=== PATIENT | female | born 1965 | race Caucasian/White ===

== ENCOUNTER 2016-05-18 19:56 | Emergency (ER) | payer MEDICAID ==
[2016-05-18] MEDS ORDERED: Sodium Chloride 0.9% 1,000 ML IV SCH ×3 (20:15→21:30)
--- NOTE | 2016-05-18 20:20 | EDM.PDOC ---
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 Onset: sudden Onset Date: 05/18/16 Onset Time: 19:30 Duration: Hour(s):, Getting worse, Heavy Location: Reports: pelvis Severity: moderate Context: Reports: Other (S/P Lap Hyst) - Related Data Allergies Allergy/AdvReac Type Severity Reaction Status Date / Time prednisone Allergy Syncope Verified 05/18/16 20:25 Home Meds: Home Meds Gabapentin [Neurontin] 300 mg PO BID 07/25/13 [History] Lisinopril 10 mg PO DAILY 07/25/13 [History] Metoprolol Tartrate 100 mg PO BID 07/25/13 [History] Nortriptyline HCl [Pamelor] 10 mg PO 07/25/13 [History] Topiramate [Topamax] 25 mg PO BID 07/25/13 [History] Venlafaxine [Effexor XR 24 Hr] 37.5 mg PO DAILY 07/25/13 [History] amLODIPine [Norvasc] 10 mg PO 07/25/13 [History] atorvaSTATin [Lipitor] 20 mg PO BEDTIME 07/25/13 [History] metroNIDAZOLE [Flagyl] 500 mg PO Q8H #30 tab 07/26/13 [Rx] Social & Family History - Alcohol Use Days Per Week of Alcohol Use: 0 - Recreational Drug Use Recreational Drug Use: No ED ROS GENERAL - Review of Systems Review Of Systems: See Below Constitutional: Reports: no symptoms HEENT: Reports: No symptoms Respiratory: Reports: no symptoms Cardiovascular: Reports: No symptoms Endocrine: Reports: no symptoms GI/Abdominal: Reports: No symptoms : Reports: other (vaginal bleeding) Musculoskeletal: Reports: no symptoms Skin: Reports: no symptoms Neurological: Reports: no symptoms Psychiatric: Reports: No symptoms Hematologic/Lymphatic: Reports: no symptoms Immunologic: Reports: no symptoms ED EXAM, GENERAL - Physical Exam Exam: See Below Exam Limited By: No limitations General Appearance: no apparent distress, anxious Eye Exam: bilateral eye: PERRL Ears: normal external exam Ear Exam: bilateral ear: TM bulging Nose: normal inspection Throat/Mouth: Normal inspection Head: atraumatic Neck: normal inspection Respiratory/Chest: no respiratory distress Cardiovascular: normal peripheral pulses, tachycardia GI/Abdominal: normal bowel sounds, soft (Female) Exam: Vaginal bleeding, Other (Sutures at Vaginal Cuff) Extremities: normal inspection Neurological: alert, oriented, CN II-XII intact Psychiatric: anxious Skin Exam: Warm, Intact Lymphatic: no adenopathy ED GENERAL MEDICAL PROCEDURES - Additional/Other Procedure(s) Other (Free Text) Procedure(s): Vaginal Packing placed by oncall Dr. Mccray. Discussed with Dr. Erazo @ [facility] in [place] and patient to transfer to ED Course - Vital Signs Last Recorded V/S: Last Vital Signs Temp 36.6 C 05/18/16 20:02 Pulse 106 H 05/18/16 20:02 Resp 20 05/18/16 20:02 BP 166/73 H 05/18/16 20:02 Pulse Ox 100 05/18/16 20:02 Departure - Departure Time of Disposition: 20:31 Disposition: DC/Tfer to Other 70 Condition: fair Clinical Impression: Vaginal bleeding, abnormal Forms: ED Department Discharge, Interfacility Transfer EMTYOLI
[2016-05-18] MEDS ORDERED: fentaNYL 100 MCG/2 ML SDV IVPUSH ONE (20:33)
[2016-05-18] MEDS ORDERED: Ondansetron 4 MG/2 ML SDV IV ONE (20:36)
[2016-05-18] MEDS ORDERED: Ondansetron 4 MG/2 ML SDV ONE (20:37)
[2016-05-18 20:39] LABS: CHLORIDE,CL 106 mmol/L (101-111); SODIUM,NA 138 mmol/L (135-145)
[2016-05-18] MEDS ORDERED: Sodium Chloride 0.9% 1,000 ML IV ONE (21:09)
--- NOTE | 2016-05-18 21:16 | PCM.SN ---
- Free Text/Narrative Note: 05/18/16 I was contacted by Dr. Edwards, the ED attending, regarding this patient who presented with brisk vaginal bleeding that started approximately 30 minutes prior to her arrival to the ED. She was laying and holding her granddaughter when the bleeding occurred. She had a laparoscopic hysterectomy on 05/01/16. She denied any intercourse or placing anything in the vagina. No heavy lifting. Upon my arrival, patient was alert and orientated. Per nursing, she had lost about 1000 mL of blood upon arrival. Her hemoglobin was 11+. Patient complained of nausea and was given 4 mg IV Zofran. She was just about to receive 50 mcg of Fentanyl for pain when she had an episode of tachycardia and hypotension. She also would not respond to questions. This lasted about 45 seconds and resolved spontaneously. The Fentanyl was held. Patient was given IV fluid bolus and cardiac monitoring was initiated. 1 unit of blood was type and crossed. 1 1/2 vaginal packs were placed and bleeding initially slowed but then continued. I spoke to Dr. Erazo, the DESK CLERK milk condenser at [facility], about any further recommendations. He stated we were doing appropriate care; however, suggested that a sedated vaginal exam may be necessary if patient becomes unstable. Patient was examined again and bleeding has slowed somewhat. Her vital signs are stable. She is currently receiving IV fluids as well as a unit of unmatched blood. A second unit of blood will be hung shortly. As patient is stable and there is no further intervention at this time, I will leave patient in the care of Dr. Edwards. If patient does become unstable, I am more than happy to reevaluated her. Ultimately, she likely needs surgical intervention. Iesha Rhodes MD
== END 2016-05-18 22:13 | disposition other institution (70) ==
LOC: DL.ED 19:56
DX: N93.9 Abnormal uterine and vaginal bleeding, unspecified (principal); Z88.8 Allergy status to other drugs, medicaments and biological substances; Z79.899 Other long term (current) drug therapy
CPT/HCPCS: 36415; 36430; 80053; 85025; 85730; 86850; 86900; 86901; 86920; 86922; 96361; 96374; 99285; J2405; J7030; P9016

== ENCOUNTER 2019-01-05 20:01 | Emergency (ER) | payer MEDICAID ==
[2019-01-05 20:19] VITALS: BP 137/56; PULSE 87
--- NOTE | 2019-01-05 21:09 | EDM.PDOC ---
ED HPI GENERAL MEDICAL PROBLEM - General Chief Complaint: Headache Stated Complaint: SPEACH, HEAD ACHE, NOT PROCESSING THOUGHTS Time Seen by Provider: 01/05/19 20:10 Source of Information: Reports: Patient History Limitations: Reports: No Limitations - History of Present Illness INITIAL COMMENTS - FREE TEXT/NARRATIVE: ED ambulatory with complaint of difficulty talking first noted 2 days ago with some weakness on right upper, family noticed sppech around 1100 today, Has felt off for a couple days .Has frontal band headache rating 9/10. Admits under stress also. 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 Patient called ED while driving from [place] to [place] . Completed her drive, Did not call 911 for assistance as "not going to leave my car on side of road" Denies any recent illness, no fever no chills, no cough, No urinary frequency or burning. GCS 15 Frontal Headache Pain Score (Numeric/FACES): 9 - Related Data Allergies Allergy/AdvReac Type Severity Reaction Status Date / Time prednisone Allergy Syncope Verified 01/05/19 20:06 Home Meds: Home Meds Gabapentin [Neurontin] 300 mg PO BID 07/25/13 [History] Lisinopril 10 mg PO DAILY 07/25/13 [History] Metoprolol Tartrate 100 mg PO BID 07/25/13 [History] Nortriptyline HCl [Pamelor] 10 mg PO 07/25/13 [History] Topiramate [Topamax] 25 mg PO BID 07/25/13 [History] Venlafaxine [Effexor XR 24 Hr] 37.5 mg PO DAILY 07/25/13 [History] amLODIPine [Norvasc] 10 mg PO 07/25/13 [History] atorvaSTATin [Lipitor] 20 mg PO BEDTIME 07/25/13 [History] metroNIDAZOLE [Flagyl] 500 mg PO Q8H #30 tab 07/26/13 [Rx] Past Medical History HEENT History: Reports: Impaired Vision Cardiovascular History: Reports: Hypertension, [place] Respiratory History: Reports: None Neurological History: Reports: CVA Psychiatric History: Reports: None Hematologic History: Reports: None Immunologic History: Reports: None Oncologic (Cancer) History: Reports: None - Past Surgical History Cardiovascular Surgical History: Reports: Coronary Artery Stent Female Surgical History: Reports: Hysterectomy Social & Family History - Tobacco Use Smoking Status *Q: Never Smoker - Recreational Drug Use Recreational Drug Use: No ED ROS GENERAL - Review of Systems Review Of Systems: ROS reveals no pertinent complaints other than HPI. ED EXAM, NEURO - Physical Exam Exam: See Below Exam Limited By: No Limitations General Appearance: Alert, Anxious, Thin Eye Exam: Bilateral Eye: EOMI, Normal Fundi, PERRL (4mm) Ears: Normal External Exam, Hearing Grossly Normal, Normal TMs Nose: Normal Inspection Throat/Mouth: Normal Lips, Normal Oropharynx, Normal Voice. No: Normal Teeth ( poor dentation) Head Exam: Atraumatic, Normocephalic Respiratory/Chest: No Respiratory Distress, Lungs Clear, Normal Breath Sounds Cardiovascular: Normal Peripheral Pulses, Regular Rate, Rhythm, No Edema GI/Abdominal: Normal Bowel Sounds, Soft Neurological: Alert, Normal Dorsiflexion, No Motor/Sensory Deficits, Oriented x 3, Other (slight weakness right upper hand grasp, no drifting. Abnrmal finger to nose 1 of 3 attempts. Speech clear, at times when anxious has difficulty getting words out intially, ). No: Tremor Back Exam: Normal Inspection Extremities: Normal Inspection Psychiatric: Anxious Skin Exam: Warm, Dry, Intact, Pallor Course - Vital Signs Last Recorded V/S: Last Vital Signs Temp 97.2 F 01/05/19 20:10 Pulse 87 01/05/19 20:10 Resp 16 01/05/19 20:10 BP 137/56 L 01/05/19 20:10 Pulse Ox 100 01/05/19 20:10 - Orders/Labs/Meds Labs: Laboratory Tests 01/05/19 01/05/19 01/05/19 Range/Units 20:17 20:17 20:17 WBC 8.1 (5.0-10.0) 10^3/uL RBC 3.98 L (4.2-5.4) 10^6/uL Hgb 12.5 D (12.0-16.0) g/dL Hct 38.5 (37.0-47.0) % MCV 96.7 (80-100) fL MCH 31.4 (27.0-34.0) pg MCHC 32.5 L (33.0-35.0) g/dL Plt Count 207 (150-450) 10^3/uL Neut % (Auto) 64.4 (42.2-75.2) % Lymph % (Auto) 20.5 (20.5-50.1) % [place] % (Auto) 12.3 H (2-8) % Eos % (Auto) 2.6 (1.0-3.0) % Baso % (Auto) 0.2 (0.0-1.0) % PT 8.9 L (9.0-12.0) SEC INR 0.9 (0.9-1.2) Sodium 137 (135-145) mmol/L Potassium 4.1 (3.6-5.0) mmol/L Chloride 103 (101-111) mmol/L Carbon Dioxide 24.0 (21.0-31.0) mmol/L Anion Gap 14.1 BUN 15 (7-18) mg/dL Creatinine 1.0 (0.6-1.3) mg/dL Est Cr Clr Drug Dosing 54.89 mL/min Estimated GFR (MDRD) 58 BUN/Creatinine Ratio 15.00 Glucose 99 (74-105) mg/dL Calcium 8.8 (8.4-10.2) mg/dl Total Bilirubin 0.5 (0.2-1.0) mg/dL AST 18 (10-42) IU/L ALT 12 (10-60) IU/L Alkaline Phosphatase 63 (42-121) IU/L Total Protein 7.3 (6.7-8.2) g/dl Albumin 4.1 (3.2-5.5) g/dl Globulin 3.2 Albumin/Globulin Ratio 1.28 Urine Color (YELLOW) Urine Appearance (CLEAR) Urine pH (5.0-9.0) Ur Specific [place] (1.005-1.030) Urine Protein (NEGATIVE) Urine Glucose (UA) (NEGATIVE) Urine Ketones (NEGATIVE) Urine Occult Blood (NEGATIVE) Urine Nitrite (NEGATIVE) Urine Bilirubin (NEGATIVE) Urine Urobilinogen (0.2-1.0) mg/dL Ur Leukocyte Esterase (NEGATIVE) Urine RBC /HPF Urine WBC (0-5/HPF) /HPF Ur Epithelial Cells (NOT SEEN) /HPF Amorphous Sediment (NOT SEEN) /HPF Urine Bacteria (0-FEW/HPF) /HPF Urine Mucus (NOT SEEN) /LPF Urine Opiates Screen (NEGATIVE) Ur Oxycodone Screen (NEGATIVE) Urine Methadone Screen (NEGATIVE) Ur Barbiturates Screen (NEGATIVE) U Tricyclic Antidepress (NEGATIVE) Ur Phencyclidine Scrn (NEGATIVE) Ur Amphetamine Screen (NEGATIVE) U Methamphetamines Scrn (NEGATIVE) Urine MDMA Screen (NEGATIVE) U Benzodiazepines Scrn (NEGATIVE) Urine Cocaine Screen (NEGATIVE) U Marijuana (THC) Screen (NEGATIVE) 01/05/19 01/05/19 Range/Units 20:40 20:40 WBC (5.0-10.0) 10^3/uL RBC (4.2-5.4) 10^6/uL Hgb (12.0-16.0) g/dL Hct (37.0-47.0) % MCV (80-100) fL MCH (27.0-34.0) pg MCHC (33.0-35.0) g/dL Plt Count (150-450) 10^3/uL Neut % (Auto) (42.2-75.2) % Lymph % (Auto) (20.5-50.1) % [place] % (Auto) (2-8) % Eos % (Auto) (1.0-3.0) % Baso % (Auto) (0.0-1.0) % PT (9.0-12.0) SEC INR (0.9-1.2) Sodium (135-145) mmol/L Potassium (3.6-5.0) mmol/L Chloride (101-111) mmol/L Carbon Dioxide (21.0-31.0) mmol/L Anion Gap BUN (7-18) mg/dL Creatinine (0.6-1.3) mg/dL Est Cr Clr Drug Dosing mL/min Estimated GFR (MDRD) BUN/Creatinine Ratio Glucose (74-105) mg/dL Calcium (8.4-10.2) mg/dl Total Bilirubin (0.2-1.0) mg/dL AST (10-42) IU/L ALT (10-60) IU/L Alkaline Phosphatase (42-121) IU/L Total Protein (6.7-8.2) g/dl Albumin (3.2-5.5) g/dl Globulin Albumin/Globulin Ratio Urine Color Yellow (YELLOW) Urine Appearance Slightly cloudy (CLEAR) Urine pH 7.0 (5.0-9.0) Ur Specific [place] 1.020 (1.005-1.030) Urine Protein Negative (NEGATIVE) Urine Glucose (UA) Negative (NEGATIVE) Urine Ketones Negative (NEGATIVE) Urine Occult Blood Negative (NEGATIVE) Urine Nitrite Negative (NEGATIVE) Urine Bilirubin Negative (NEGATIVE) Urine Urobilinogen 2.0 H (0.2-1.0) mg/dL Ur Leukocyte Esterase Trace H (NEGATIVE) Urine RBC 0-5 /HPF Urine WBC 20-30 H (0-5/HPF) /HPF Ur Epithelial Cells Moderate H (NOT SEEN) /HPF Amorphous Sediment Few (NOT SEEN) /HPF Urine Bacteria Moderate H (0-FEW/HPF) /HPF Urine Mucus Few H (NOT SEEN) /LPF Urine Opiates Screen Negative (NEGATIVE) Ur Oxycodone Screen Negative (NEGATIVE) Urine Methadone Screen Negative (NEGATIVE) Ur Barbiturates Screen Negative (NEGATIVE) U Tricyclic Antidepress Negative (NEGATIVE) Ur Phencyclidine Scrn Negative (NEGATIVE) Ur Amphetamine Screen Negative (NEGATIVE) U Methamphetamines Scrn Negative (NEGATIVE) Urine MDMA Screen Negative (NEGATIVE) U Benzodiazepines Scrn Negative (NEGATIVE) Urine Cocaine Screen Negative (NEGATIVE) U Marijuana (THC) Screen Negative (NEGATIVE) - Radiology Interpretation Free Text/Narrative:: [facility] Final Radiology Report Call: [phone] assistance Online chat: [email or web address] Name: MICHEAL BOND Age: 53Years F Date: 01/05/2019 SSN: -- : [id number] Study: CT HEAD WO Requesting Physician: ARTEMIO RODGERS Images: [id number] Addl Studies: Provided Clinical History: Contrast: Without Contrast Medium: Contrast Amount: Contrast Method: Page 1 of 2 PROCEDURE INFORMATION: Exam: CT Head Without Contrast Exam date and time: 01/05/2019 8:27 PM Clinical history: 53 years old, female; Other: Trouble speaking, previous cta TECHNIQUE: Imaging protocol: Computed tomography of the head without contrast. Radiation optimization: All CT scans at this facility use at least one of these dose optimization techniques: automated exposure control; mA and/or kV adjustment per patient size (includes targeted exams where dose is matched to clinical indication); or iterative reconstruction. Other technique: STROKE PROTOCOL was implemented. COMPARISON: CT HEAD 10/17/2012 11:33 PM FINDINGS: Brain: Multiple old bilateral lacunar infarcts are demonstrated similar to the prior study. There is moderate diffuse cerebral atrophy present, more pronounced than expected for this patient's age. The appearance is similar to the prior study. There is no evidence of acute hemorrhage within the brain parenchyma or the subarachnoid space. There is no evidence of an acute ischemic event. Patchy deep white matter low-attenuation zones are seen compatible with this age group suggesting chronic subcortical ischemia. Ventricles: The ventricular system demonstrates moderate diffuse compensatory enlargement. Bones/joints: The skull is normal. Sinuses: There is a moderate sized retention cyst or polyp in the right maxillary sinus. Mastoid air cells: The mastoid sinuses are normal. Orbits: The visualized portions of the orbits are normal. Soft tissues: The extracranial soft tissues are normal. IMPRESSION: 1. Multiple old lacunar infarcts on the right than the left. MICHEAL BOND | Final Radiology Report CONFIDENTIALITY STATEMENT This report is intended only for use by the referring physician, and only in accordance with law. If you received this in error, call [phone]. Page 2 of 2 2. No acute infarcts identified. 3. No significant change is identified since the prior exam. ASSESSMENT: ASPECTS ([place] Stroke Program Early CT Score) is 10. Thank you for allowing us to participate in the care of your patient. Dictated and Authenticated by: Prosper Hutchison MD 01/05/2019 8:36 PM Central Time ([place] - Re-Assessments/Exams Free Text/Narrative Re-Assessment/Exam: 5500 TC with Alt neurology. Admit to hospitalist. Dr Tom accepting. Tx via [facility]. GCS 15 at time of tx Departure - Departure Time of Disposition: 21:15 Disposition: DC/Tfer to Acute Hospital 02 Condition: Fair, Undetermined Clinical Impression: Alteration in speech, Anxiety, Weakness of right arm Headache Qualifiers: Headache type: unspecified Headache chronicity pattern: unspecified pattern Intractability: not intractable Qualified Code(s): R51 - Headache - Discharge Information Referrals: PCP,Unobtain [Primary Care Provider] - Forms: ED Department Discharge
[2019-01-05 21:15] LABS: ANION GAP 14.1
== END 2019-01-05 21:18 ==
LOC: DL.ED 20:01
DX: R47.81 Slurred speech (principal); F41.9 Anxiety disorder, unspecified; M62.81 Muscle weakness (generalized); R51 Headache; I10 Essential (primary) hypertension; I25.2 Old myocardial infarction; Z79.899 Other long term (current) drug therapy; Z86.73 Personal history of transient ischemic attack (TIA), and cerebral infarction without residual deficits; Z88.8 Allergy status to other drugs, medicaments and biological substances
CPT/HCPCS: 36415; 70450; 80053; 80305-QW; 81001; 85025; 85610; 87086; 99285-25

== ENCOUNTER 2020-04-25 19:09 | Emergency (ER) | payer MEDICAID ==
[2020-04-25] MEDS ORDERED: Pantoprazole 40 MG Vial IVPUSH ONE (19:14)
[2020-04-25] MEDS ORDERED: Sodium Chloride 0.9% 1,000 ML IV ONE (19:14)
[2020-04-25] MEDS ORDERED: Octreotide 100 MCG in Sodium Chloride 0.9% 99 ML IV SCH (19:15)
[2020-04-25] MEDS ORDERED: Ondansetron 4 MG/2 ML SDV IVPUSH ONE ×2 (19:33→20:36)
[2020-04-25] MEDS ORDERED: Ondansetron 4 MG/2 ML SDV ONE (19:33)
[2020-04-25 19:44] VITALS: BP 172/68; PULSE 99
--- NOTE | 2020-04-25 19:45 | EDM.PDOC ---
ED HPI GENERAL MEDICAL PROBLEM - General Stated Complaint: AMBULANCE Time Seen by Provider: 04/25/20 19:20 Source of Information: Reports: Patient, EMS, RN, RN Notes Reviewed History Limitations: Reports: No Limitations - History of Present Illness INITIAL COMMENTS - FREE TEXT/NARRATIVE: Patient presents to the ED via EMS with complaints of hematemesis. The patient reports she has felt nauseas for most of the afternoon for which she took GasX. She states she was driving home to [place] roughly one hour ago and starting vomiting coffee-ground emesis in her car; she called [address] for EMS support. She denies a history of GI bleed; she notes she was recently start on Famotidine 20mg daily for a diagnosis of Gastritis. She denies recent illness, fever, shaking chills, chest pain, shortness of breath, palpitations, diarrhea, melena, or hematochezia. She attests to drinking "socially"; her last drink was two liquor drinks last night, 04/25/20. She denies tobacco or recr eational drug use. - Related Data Allergies Allergy/AdvReac Type Severity Reaction Status Date / Time prednisone Allergy Syncope Verified 04/25/20 19:44 Home Meds: Home Meds Gabapentin [Neurontin] 300 mg PO BID 07/25/13 [History] Lisinopril 10 mg PO DAILY 07/25/13 [History] Metoprolol Tartrate 100 mg PO BID 07/25/13 [History] Nortriptyline HCl [Pamelor] 10 mg PO 07/25/13 [History] Topiramate [Topamax] 25 mg PO BID 07/25/13 [History] Venlafaxine [Effexor XR 24 Hr] 37.5 mg PO DAILY 07/25/13 [History] amLODIPine [Norvasc] 10 mg PO 07/25/13 [History] atorvaSTATin [Lipitor] 20 mg PO BEDTIME 07/25/13 [History] metroNIDAZOLE [Flagyl] 500 mg PO Q8H #30 tab 07/26/13 [Rx] Past Medical History HEENT History: Reports: Impaired Vision Cardiovascular History: Reports: Hypertension, [place] Respiratory History: Reports: None Neurological History: Reports: CVA Psychiatric History: Reports: None Hematologic History: Reports: None Immunologic History: Reports: None Oncologic (Cancer) History: Reports: None - Past Surgical History Cardiovascular Surgical History: Reports: Coronary Artery Stent Female Surgical History: Reports: Hysterectomy ED ROS GENERAL - Review of Systems Review Of Systems: Comprehensive ROS is negative, except as noted in HPI. ED EXAM, GI/ABD - Physical Exam Exam: See Below Exam Limited By: No Limitations General Appearance: Alert, Mild Distress (Emesis; Diaphoresis) Eyes: Bilateral: Normal Appearance, EOMI Throat/Mouth: Normal Inspection, Normal Voice, No Airway Compromise, Other (Dried brown emesis to lips) Head: Atraumatic, Normocephalic Neck: Normal Inspection, Supple, Non-Tender, Full Range of Motion Respiratory/Chest: No Respiratory Distress, Lungs Clear, Normal Breath Sounds, No Accessory Muscle Use, Chest Non-Tender Cardiovascular: Normal Peripheral Pulses, Regular Rate, Rhythm, No Edema, No Gallop, No JVD, No Murmur, No Rub GI/Abdominal Exam: Normal Bowel Sounds, Soft, Non-Tender, No Distention, No Mass, Pelvis Stable Neurological: Alert, Oriented, CN II-XII Intact, Normal Cognition, No Motor/Sensory Deficits Psychiatric: Anxious Skin Exam: Warm, Diaphoretic, Pallor. No: Ecchymosis, Erythema, Jaundice, Mottled #1 Interpretation EKG Date: 04/25/20 Time: 19:27 Rhythm: NSR Rate (Beats/Min): 87 [place]: Normal P-Wave: Present QRS: Normal ST-T: Normal QT: Normal Comparison: NA - No Prior EKG EKG Interpretation Comments: NSR; PVCs; No evidence of acute ischemia Course - Vital Signs Last Recorded V/S: Last Vital Signs Temp 97.1 F 04/25/20 19:13 Pulse 99 04/25/20 19:13 Resp 17 04/25/20 19:13 BP 172/68 H 04/25/20 19:13 Pulse Ox 96 04/25/20 19:13 - Orders/Labs/Meds Orders: Active Orders 24 hr Category Date Time Status C-REACTIVE PROTEIN [CHEM] Stat Lab 04/25/20 19:19 Received COMPREHENSIVE METABOLIC PN,CMP [CHEM] Stat Lab 04/25/20 19:19 Received ETHANOL BLOOD MEDICAL [CHEM] Stat Lab 04/25/20 19:19 Received MAGNESIUM [CHEM] Stat Lab 04/25/20 19:19 Received Octreotide [SandoSTATIN] 100 mcg Med 04/25/20 19:15 Active Sodium Chloride 0.9% [Normal Saline] 99 ml IV Q10H Blood Transfusion Reflex Orders [OM.PC] Routine Oth 04/25/20 19:10 Ordered Medication Orders Octreotide Acetate 100 mcg/ (Sodium Chloride) 100 mls @ 50 mls/hr IV Q10H RENETTA Last Admin: 04/25/20 19:26 Dose: 50 mls/hr Documented by: JEROME Labs: Laboratory Tests 04/25/20 04/25/20 04/25/20 Range/Units 19:19 19:19 19:19 WBC 13.2 H (5.0-10.0) 10^3/uL RBC 3.82 L (4.2-5.4) 10^6/uL Hgb 12.4 (12.0-16.0) g/dL Hct 38.4 (37.0-47.0) % MCV 100.5 H D (80-100) fL MCH 32.5 (27.0-34.0) pg MCHC 32.3 L (33.0-35.0) g/dL Plt Count 235 (150-450) 10^3/uL Neut % (Auto) 79.6 H (42.2-75.2) % Lymph % (Auto) 10.2 L (20.5-50.1) % [place] % (Auto) 8.6 H (2-8) % Eos % (Auto) 1.4 (1.0-3.0) % Baso % (Auto) 0.2 (0.0-1.0) % PT 9.5 (9.0-12.0) SEC INR 1.0 (0.9-1.2) APTT 25.0 (22.0-34.0) SEC Blood Type A POSITIVE Gel Antibody Screen Negative Meds: Medications Generic Name Dose Route Start Last Admin Trade Name Freq PRN Reason Stop Dose Admin Octreotide Acetate 100 mcg/ 100 mls @ 50 mls/hr 04/25/20 19:15 04/25/20 19:26 Sodium Chloride IV 50 mls/hr Q10H RENETTA Administration Discontinued Medications Generic Name Dose Route Start Last Admin Trade Name Freq PRN Reason Stop Dose Admin Sodium Chloride 1,000 mls @ 999 mls/hr 04/25/20 19:14 04/25/20 19:26 Normal Saline IV 04/25/20 20:14 250 mls/hr .BOLUS ONE Administration Metoclopramide HCl 10 mg 04/25/20 19:51 04/25/20 19:55 Reglan IVPUSH 04/25/20 19:52 10 mg ONETIME ONE Administration Ondansetron HCl 4 mg 04/25/20 19:33 04/25/20 19:36 Zofran IVPUSH 04/25/20 19:34 4 mg ONETIME ONE Administration Ondansetron HCl Confirm 04/25/20 19:33 04/25/20 19:38 Zofran Administered 04/25/20 19:34 Not Given Dose 4 mg .ROUTE .STK-MED ONE Ondansetron HCl 4 mg 04/25/20 20:36 04/25/20 20:42 Zofran IVPUSH 04/25/20 20:37 4 mg ONETIME ONE Administration Pantoprazole Sodium 40 mg 04/25/20 19:14 04/25/20 19:26 Protonix Iv IVPUSH 04/25/20 19:15 40 mg ONETIME ONE Administration - Re-Assessments/Exams Free Text/Narrative Re-Assessment/Exam: 04/25/20 Octreotide gtt and Protonix 40mg IVP initiated upon patient's arrival. NS 1L bolus initiated. Zofran 4mg IVP administered x1. Patient continued to experience coffee-group emesis, 200cc x2. Reglan 10mg IVP administered. Hgb 12.4, RBC 3.82, WBC 13.2 with left shift. Coags appropriate. Awaiting CMP. Case discussed with Dr. Payne, hospitalist from [facility] in [place] who k indly agreed to accept the patient for transfer. Plan of care discussed with patient who verbalized understanding and agreement with the plan of care. Departure - Departure Time of Disposition: 21:01 Disposition: DC/Tfer to Acute Hospital 02 Clinical Impression: GI bleed Qualifiers: GI bleed type/associated pathology: unspecified gastrointestinal hemorrhage type Qualified Code(s): K92.2 - Gastrointestinal hemorrhage, unspecified - Discharge Information Forms: ED Department Discharge, Interfacility Transfer [facility] Sepsis Event Note (ED) - Focused Exam Vital Signs: Vital Signs Temp Pulse Resp BP Pulse Ox 04/25/20 19:13 97.1 F 99 17 172/68 H 96 - My Orders Last 24 Hours: My Active Orders 04/25/20 19:10 Blood Transfusion Reflex Orders [OM.PC] Routine 04/25/20 19:15 Octreotide [SandoSTATIN] 100 mcg Sodium Chloride 0.9% [Normal Saline] 99 ml IV Q10H 04/25/20 19:19 C-REACTIVE PROTEIN [CHEM] Stat COMPREHENSIVE METABOLIC PN,CMP [CHEM] Stat ETHANOL BLOOD MEDICAL [CHEM] Stat MAGNESIUM [CHEM] Stat - Assessment/Plan Last 24 Hours: My Active Orders 04/25/20 19:10 Blood Transfusion Reflex Orders [OM.PC] Routine 04/25/20 19:15 Octreotide [SandoSTATIN] 100 mcg Sodium Chloride 0.9% [Normal Saline] 99 ml IV Q10H 04/25/20 19:19 C-REACTIVE PROTEIN [CHEM] Stat COMPREHENSIVE METABOLIC PN,CMP [CHEM] Stat ETHANOL BLOOD MEDICAL [CHEM] Stat MAGNESIUM [CHEM] Stat
[2020-04-25] MEDS ORDERED: Metoclopramide 10 MG/2 ML SDV IVPUSH ONE (19:51)
[2020-04-25 22:55] LABS: ANION GAP 17.3 mEq/L (7-13)
== END 2020-04-25 20:45 ==
LOC: DL.ED 19:09
DX: K92.2 Gastrointestinal hemorrhage, unspecified (principal); I10 Essential (primary) hypertension; I25.2 Old myocardial infarction; Z88.8 Allergy status to other drugs, medicaments and biological substances; Z79.899 Other long term (current) drug therapy
CPT/HCPCS: 36415; 80053; 80307; 83735; 85025; 85610; 85730; 86140; 86850; 86900; 86901; 93005; 96365; 96375; 96376; 99285; C9113; J2354; J2405; J2765; J7030; 93010; 99284

== ENCOUNTER 2021-10-27 12:23 | Emergency (ER) | payer OTHER, MEDICAID ==
[2021-10-27 12:57] VITALS: PULSE 78
[2021-10-27 13:37] LABS: AMPHETAMINES,URINE NEGATIVE (NEGATIVE); BARBITURATES,URINE NEGATIVE (NEGATIVE); BENZODIAZEPINE,URINE NEGATIVE (NEGATIVE); MDMA (ECSTASY), URINE NEGATIVE (NEGATIVE); METHADONE,URINE NEGATIVE (NEGATIVE); METHAMPHETAMINES,URINE NEGATIVE (NEGATIVE); OPIATES,URINE NEGATIVE (NEGATIVE); OXYCODONE,URINE NEGATIVE (NEGATIVE); PHENCYCLIDINE,URINE NEGATIVE (NEGATIVE); TCA,URINE NEGATIVE (NEGATIVE)
[2021-10-27 13:55] LABS: ANION GAP 14.3 mEq/L (7-13); CHLORIDE,CL 103 mmol/L (98-107); SODIUM,NA 140 mmol/L (136-145)
[2021-10-27 13:56] LABS: ESTIMATED GFR 66 mL/min (>=60)
[2021-10-27 14:00] LABS: PTT,PARTIAL THROMBOPLSTIN TIME 34.4 SEC (22.0-34.0)
== END 2021-10-27 14:10 | disposition home or self-care (01) ==
LOC: DL.ED 12:23
DX: M25.532 Pain in left wrist (principal); M25.561 Pain in right knee; Z88.8 Allergy status to other drugs, medicaments and biological substances; Z79.899 Other long term (current) drug therapy; I10 Essential (primary) hypertension; I25.2 Old myocardial infarction; Z86.73 Personal history of transient ischemic attack (TIA), and cerebral infarction without residual deficits; Z90.710 Acquired absence of both cervix and uterus; V89.2XXA Person injured in unspecified motor-vehicle accident, traffic, initial encounter; Y92.410 Unspecified street and highway as the place of occurrence of the external cause
CPT/HCPCS: 36415; 70450; 71045; 72125; 72170; 80053; 80305-QW; 80307; 81003; 82150; 83690; 85025; 85610; 85730; 99283; 99284

== ENCOUNTER 2021-11-10 08:21 | Emergency (ER) | payer MEDICAID ==
[2021-11-10 08:42] VITALS: BP 155/83; PULSE 78
== END 2021-11-10 09:51 | disposition home or self-care (01) ==
LOC: DL.ED 08:21
DX: Z76.0 Encounter for issue of repeat prescription (principal); I10 Essential (primary) hypertension; I25.2 Old myocardial infarction; Z88.8 Allergy status to other drugs, medicaments and biological substances; Z86.73 Personal history of transient ischemic attack (TIA), and cerebral infarction without residual deficits
CPT/HCPCS: 99281; 99284

== ENCOUNTER 2023-09-17 16:00 | Emergency (ER) | payer MEDICAID ==
[2023-09-17 16:25] VITALS: BP 172/87; PULSE 80
== END 2023-09-17 17:38 | disposition home or self-care (01) ==
LOC: DL.ED 16:00
DX: S92.351A Displaced fracture of fifth metatarsal bone, right foot, initial encounter for closed fracture (principal); I10 Essential (primary) hypertension; I25.2 Old myocardial infarction; Z88.8 Allergy status to other drugs, medicaments and biological substances; Z79.899 Other long term (current) drug therapy; Z79.01 Long term (current) use of anticoagulants; Z86.73 Personal history of transient ischemic attack (TIA), and cerebral infarction without residual deficits; Z95.5 Presence of coronary angioplasty implant and graft; Z90.710 Acquired absence of both cervix and uterus; W01.198A Fall on same level from slipping, tripping and stumbling with subsequent striking against other object, initial encounter
CPT/HCPCS: 29125; 70450; 73120-RT; 99283; 99284-25